=== PATIENT | male | born 1980 | race Two or more races ===

== ENCOUNTER 2022-08-30 17:04 | Inpatient (IN) | payer OTHER ==
[2022-08-30 18:24] VITALS: BMI 22.6
[2022-08-30] MEDS ORDERED: POLYETHYLENE GLYCOL (HEALTHYLAX) 3350 17 GM PACKET PO PRN (21:01)
[2022-08-30] MEDS ORDERED: LOPERAMIDE HCL 2 MG CAPSULE PO PRN (21:01)
[2022-08-30] MEDS ORDERED: ONDANSETRON *ODT* 4 MG TABLET SL PRN (21:01)
[2022-08-30] MEDS ORDERED: NICOTINE 10 MG CARTRIDGE (INHALER) IH PRN (21:01)
[2022-08-30] MEDS ORDERED: DICYCLOMINE HCL 10 MG CAPSULE PO PRN (21:01)
[2022-08-30] MEDS ORDERED: NALOXONE HCL (KLOXXADO) 8 MG SPRAY NS PRN (21:01)
[2022-08-30] MEDS ORDERED: BENZONATATE 200 MG CAPSULE PO PRN (21:01)
[2022-08-30] MEDS ORDERED: NALOXONE HCL 0.4 MG/ML VIAL IM PRN (21:01)
[2022-08-30] MEDS ORDERED: NICOTINE POLACRILEX 2 MG GUM BUC PRN (21:01)
[2022-08-30] MEDS ORDERED: ACETAMINOPHEN 325 MG TABLET (FP) PO PRN (21:01)
[2022-08-30] MEDS ORDERED: IBUPROFEN 600 MG TABLET (FP) PO PRN (21:01)
[2022-08-30] MEDS ORDERED: MAGNESIUM HYDROX 2400MG/30ML ORAL SUSPENSION 30 ML CUP PO PRN (21:01)
[2022-08-30] MEDS ORDERED: P-EPHED 60MG/TRIPROLIDI 2.5MG TABLET PO PRN (21:01)
[2022-08-30] MEDS ORDERED: BENZOCAINE/MENTHOL (CHLORASEPTIC ) LOZENGE MM PRN (21:01)
[2022-08-30] MEDS ORDERED: guaiFENesin 600 MG TABLET.ER (FP) PO PRN (21:01)
[2022-08-30] MEDS ORDERED: BISMUTH SUBSALICYLATE 524 MG/30 ML PO PRN (21:01)
[2022-08-30] MEDS ORDERED: MAG HYDROX/AL HYDROX/SIMETH 30 ML UNIT-DOSE CUP PO PRN (21:01)
[2022-08-30] MEDS: THIAMINE HCL 100 MG TABLET (FP) PO SCH (22:57)
[2022-08-30] MEDS: MELATONIN 5 MG TABLETS PO PRN (22:57)
[2022-08-30] MEDS: hydrOXYzine PAMOATE 25 MG CAPSULE (FP) PO PRN (22:57)
[2022-08-31 10:05] LABS: HEMATOCRIT 38.4 % (35.4-49); HEMOGLOBIN 13.1 GM/dL (11.7-16.9); MCH 33.3 pg (25.7-33.7); MCHC 34.2 g/dl (32.0-35.9); MEAN CELL VOLUME 97.3 fl (80-96); MEAN PLT VOLUME 8.7 fl (7.5-11.1); PLATELET COUNT 192 10^3/uL (134-434); RBC 3.95 M/mm3 (4.00-5.60); RDW 13.9 % (11.9-15.9); WHITE BLOOD COUNT 6.7 K/mm3 (4.0-10.0)
[2022-08-31 10:08] LABS: CALCIUM 8.4 mg/dL (8.5-10.1)
[2022-08-31 10:09] LABS: ALBUMIN 3.1 g/dl (3.4-5.0)
[2022-08-31 10:12] LABS: CREATININE 0.8 mg/dL (0.55-1.3)
[2022-08-31 10:14] LABS: BILIRUBIN,TOTAL 0.5 mg/dL (0.2-1); TOT PROT 5.6 g/dl (6.4-8.2)
[2022-08-31] MEDS: PRENATAL VITAMINS W/ FOLIC ACID TABLET (FP) PO SCH (10:37)
[2022-08-31] MEDS ORDERED: methaDONE HCL 10 MG TABLET (FOR DETOX USE ONLY) PO ONE (20:51)
[2022-08-31] MEDS ORDERED: chlordiazePOXIDE HCL 25 MG CAPSULE PO PRN (20:51)
[2022-08-31] MEDS ORDERED: cloNIDine HCL 0.1 MG TABLET PO PRN (20:51)
[2022-08-31] MEDS: THIAMINE HCL 100 MG TABLET (FP) PO SCH (22:47)
[2022-08-31] MEDS: MELATONIN 5 MG TABLETS PO PRN (22:48)
[2022-08-31] MEDS: hydrOXYzine PAMOATE 25 MG CAPSULE (FP) PO PRN (22:48)
[2022-08-31] MEDS: chlordiazePOXIDE HCL 25 MG CAPSULE PO SCH (22:49)
[2022-08-31] MEDS: METHOCARBAMOL 500 MG TABLET PO PRN (22:49)
[2022-09-01] MEDS: chlordiazePOXIDE HCL 25 MG CAPSULE PO SCH ×3 (05:40→17:29)
[2022-09-01] MEDS: PRENATAL VITAMINS W/ FOLIC ACID TABLET (FP) PO SCH (10:17)
[2022-09-01] MEDS: METHOCARBAMOL 500 MG TABLET PO PRN (21:25)
[2022-09-01] MEDS: THIAMINE HCL 100 MG TABLET (FP) PO SCH (21:25)
[2022-09-01] MEDS: hydrOXYzine PAMOATE 25 MG CAPSULE (FP) PO PRN (21:26)
[2022-09-01] MEDS: IBUPROFEN 400 MG TABLET (FP) PO PRN (21:26)
[2022-09-01] MEDS: chlordiazePOXIDE HCL 10 MG CAPSULE PO SCH (23:01)
[2022-09-01] MEDS: MELATONIN 5 MG TABLETS PO PRN (23:02)
[2022-09-02] MEDS: chlordiazePOXIDE HCL 10 MG CAPSULE PO SCH ×2 (05:55→10:13)
[2022-09-02 06:29] VITALS: RESP 16
[2022-09-02] MEDS: IBUPROFEN 400 MG TABLET (FP) PO PRN (09:08)
[2022-09-02] MEDS: METHOCARBAMOL 500 MG TABLET PO PRN (09:08)
[2022-09-02 09:48] VITALS: BP 118/82; PULSE 57; TEMP 98.6
[2022-09-02] MEDS ORDERED: methaDONE HCL 10 MG TABLET (FOR DETOX USE ONLY) PO ONE (10:00)
[2022-09-02] MEDS: PRENATAL VITAMINS W/ FOLIC ACID TABLET (FP) PO SCH (11:27)
[2022-09-03] MEDS ORDERED: chlordiazePOXIDE HCL 10 MG CAPSULE PO PRN
[2022-09-04] MEDS ORDERED: chlordiazePOXIDE HCL 10 MG CAPSULE PO SCH (05:00)
[2022-09-04] MEDS ORDERED: methaDONE HCL 10 MG TABLET (FOR DETOX USE ONLY) PO ONE (10:00)
[2022-09-05] MEDS ORDERED: chlordiazePOXIDE HCL 10 MG CAPSULE PO ONE (05:00)
== END 2022-09-02 12:00 | disposition home or self-care (01) | DRG 773 ==
LOC: YASAS 17:04 → Y3N 22:29 → UNDOADMIN 22:29
PROVIDERS: ADMIT Allergy & Immunology; ATTEND Surgery
PROC: HZ2ZZZZ Detoxification Services for Substance Abuse Treatment (ICD-10-PCS; principal; 2022-08-30)
DX: F11.23 Opioid dependence with withdrawal (principal); F10.230 Alcohol dependence with withdrawal, uncomplicated; F14.20 Cocaine dependence, uncomplicated; F12.20 Cannabis dependence, uncomplicated; F17.210 Nicotine dependence, cigarettes, uncomplicated; Z56.0 Unemployment, unspecified; Z59.00 Homelessness unspecified
CPT/HCPCS: 36415; 80053; 85027; 86780; C9803-CS; U0003; U0005